=== PATIENT | female | born 1965 | race Caucasian/White ===

== ENCOUNTER → 2024-04-07 08:16 | Outpatient (REF) | payer BC, SELFPAY | LOC: HWRAD 08:16 | PROVIDERS: ATTENDING PHYSICIAN Nurse Practitioner Family | DX: J98.4 Other disorders of lung (principal) | CPT/HCPCS: 71250 ==

== ENCOUNTER → 2024-05-19 13:49 | Outpatient (REF) | payer BC, SELFPAY | LOC: WDC 13:49 | PROVIDERS: ATTENDING PHYSICIAN Nurse Practitioner Family | DX: Z12.31 Encounter for screening mammogram for malignant neoplasm of breast (principal); Z78.0 Asymptomatic menopausal state | CPT/HCPCS: 77063; 77067; 77080 ==

== ENCOUNTER → 2024-09-03 12:34 | Outpatient (REF) | payer BC, SELFPAY | LOC: WDC 12:34 | PROVIDERS: ATTENDING PHYSICIAN Nurse Practitioner Family | DX: R92.2 Inconclusive mammogram (principal) | CPT/HCPCS: 76641 ==

== ENCOUNTER → 2025-04-20 10:45 | Outpatient (REF) | payer BC, SELFPAY | LOC: HWRAD 10:45 | PROVIDERS: ATTENDING PHYSICIAN Nurse Practitioner Family | DX: J98.4 Other disorders of lung (principal) | CPT/HCPCS: 71250 ==

== ENCOUNTER → 2025-04-29 10:51 | Outpatient (REF) | payer BC, SELFPAY ==
[2025-04-29 11:42] LABS: Hematocrit 36.8 % (37.0-47.0); Hemoglobin 11.7 g/dL (12.0-16.0); Mean Corp Hgb Conc. 31.8 g/dL (33.0-37.0); Mean Corpuscular Volume 88.5 fL (81.0-99.0); Nucleated Red Blood Cells % 0 %; Platelet Count 344 10^3/uL (130-400); Red Cell Dist. Width 13.2 % (11.5-14.5); Reticulocyte Count 0.9 % (0.4-2.8)
[2025-04-29 11:54] LABS: Blood Urea Nitrogen 19 mg/dl (7-17); Calcium 9.6 mg/dl (8.4-10.2); Carbon Dioxide 30 mmol/L (22-30); Chloride 106 mmol/L (98-107); Glucose 72 mg/dl (70-99); Potassium 4.4 mmol/L (3.5-5.1); Sodium 142 mmol/L (135-145); eGFR > 60.00
[2025-04-29 11:55] LABS: INR 0.95; PT 13.0 Sec (11.4-14.6)
[2025-04-29 11:56] LABS: APTT 28.8 Sec (23.4-35.0)
== END ==
LOC: REG 10:51
PROVIDERS: ATTENDING PHYSICIAN Internal Medicine Critical Care Medicine; FAMILY PHYSICIAN Nurse Practitioner Family
DX: Z01.818 Encounter for other preprocedural examination (principal)
CPT/HCPCS: 36415; 80048; 85025; 85045; 85610; 85730; 93005

== ENCOUNTER 2025-05-02 06:17 | Day surgery (SDC) | payer BC, SELFPAY ==
[2025-05-02] VITALS (8 sets, daily range): BP systolic 99–117; BP diastolic 49–65; BMI 25.0
[2025-05-02] MEDS: VENTOLIN NEBULES 2.5 MG INH (12:42)
[2025-05-02] MEDS: NSS 500 IV (13:06)
[2025-05-02 15:41] LABS: Brochalveolar Lavage Color Colorless; Brochalveolar Lavage Volume 27 ml
[2025-05-02 15:42] LABS: Brochalveolar Lavage Character Hazy (Clear); Brochalveolar Lavage WBC 7150 cells/ml
[2025-05-02 16:53] LABS: BAL Lining Cells 3 %
== END 2025-05-02 15:55 | disposition home or self-care (01) ==
LOC: SDS 06:17
PROVIDERS: ATTENDING PHYSICIAN Internal Medicine Critical Care Medicine
DX: R91.1 Solitary pulmonary nodule (principal); R91.8 Other nonspecific abnormal finding of lung field; J98.09 Other diseases of bronchus, not elsewhere classified; J45.40 Moderate persistent asthma, uncomplicated; J47.9 Bronchiectasis, uncomplicated
CPT/HCPCS: 31629; 31628; 31645; 31624; 31623; 31627; 31654; 71045; 87070; 87077; 87102; 87116; 87185; 87205; 88112; 88173; 88305; 88312; 88333; 89051; 94640; C1887

== ENCOUNTER → 2025-05-09 15:41 | Outpatient (REF) | payer BC, SELFPAY | LOC: RAD 15:41 | PROVIDERS: ATTENDING PHYSICIAN Internal Medicine Critical Care Medicine; FAMILY PHYSICIAN Nurse Practitioner Family | DX: R06.02 Shortness of breath (principal); R07.89 Other chest pain | CPT/HCPCS: 71046 ==

== ENCOUNTER → 2025-05-30 11:23 | Outpatient (REF) | payer BC, SELFPAY | LOC: RAD 11:23 | PROVIDERS: ATTENDING PHYSICIAN Internal Medicine Critical Care Medicine | DX: J18.9 Pneumonia, unspecified organism (principal); R93.89 Abnormal findings on diagnostic imaging of other specified body structures | CPT/HCPCS: 71046 ==

== ENCOUNTER → 2025-06-20 10:37 | Outpatient (REF) | payer BC, SELFPAY | LOC: HWRAD 10:37 | PROVIDERS: ATTENDING PHYSICIAN Internal Medicine Critical Care Medicine; FAMILY PHYSICIAN Nurse Practitioner Family | DX: R91.8 Other nonspecific abnormal finding of lung field (principal) | CPT/HCPCS: 71250 ==

== ENCOUNTER → 2025-07-19 06:56 | Outpatient (REF) | payer BC, SELFPAY ==
[2025-07-19] VITALS (13 sets, daily range): BP systolic 53–116; BP diastolic 48–69
[2025-07-19 07:28] LABS: INR 1.16; PT 14.9 Sec (11.4-14.6)
[2025-07-19 07:36] LABS: Hematocrit 37.9 % (37.0-47.0); Hemoglobin 12.1 g/dL (12.0-16.0); Mean Corp Hgb Conc. 31.9 g/dL (33.0-37.0); Mean Corpuscular Volume 88.1 fL (81.0-99.0); Nucleated Red Blood Cells % 0 %; Red Cell Dist. Width 12.6 % (11.5-14.5)
== END ==
LOC: RADI 06:56
PROVIDERS: ATTENDING PHYSICIAN Internal Medicine Critical Care Medicine; FAMILY PHYSICIAN Nurse Practitioner Family
DX: R91.1 Solitary pulmonary nodule (principal); D68.8 Other specified coagulation defects
CPT/HCPCS: 32408; 36415; 71045; 85025; 85610; 88305; 88312; 88333; 99152; 99153

== ENCOUNTER → 2025-08-02 14:27 | Outpatient (REF) | payer BC, SELFPAY | LOC: RAD 14:27 | PROVIDERS: ATTENDING PHYSICIAN Internal Medicine Critical Care Medicine; FAMILY PHYSICIAN Nurse Practitioner Family | DX: R06.02 Shortness of breath (principal); D86.0 Sarcoidosis of lung | CPT/HCPCS: 71046 ==